=== PATIENT | female | born 1975 | race Caucasian/White ===

== ENCOUNTER 2025-07-19 10:30 | Emergency (ER) | payer MEDICARE, OTHER ==
[~2025-07-19] VITALS: Ht 177.8 cm; Wt 107.6 kg
[~2025-07-19 10:30] MED LIST: CALCIUM PO; FERRALET 90 DU1 EACH PO; FIORICET1 EA PO; FLONAS; HYDROCODONE-AP1 EACH PO; LEVAQUIN500 MG PO; LORZONE750 MG PO; NAPROXEN PO; OMEPRAZOLE40 MG PO; PANTOPRAZOLE SO40 MG PO; PROAIR HFA INH8.5 GM; PROPRANOLOL HCL10 MG PO; SAVELLA100 MG PO; SUCRALFATE1 GM/10 ML PO; ULTRAM 50MG50 MG PO; VIMOVO PO; VITAMIN D3 1,01 EACH PO; XANAX0.5 MG PO; Z.0.CYMBALTA60 MG PO; Z.0.PRILOSEC40 MG PO; [UNRECOGNIZED DRUG - OTHER]; [UNRECOGNIZED DRUG - OTHER] NS
[2025-07-19 10:40] VITALS: PULSE 94; RESP 20; TEMP 97.9
[2025-07-19] MEDS ORDERED: IOPAMIDOL 370 MG/ML 100 ML INFUS..BTL INJ ONE (12:01)
[2025-07-19] MEDS: ONDANSETRON HCL INJ 2MG/ML 2ML 2 MG/ML VIAL IV STA (12:02)
[2025-07-19] MEDS: FAMOTIDINE 20 MG/2 ML VIAL IV STA (12:02)
[2025-07-19] MEDS: SODIUM CHLORIDE 0.9% 1000ML 1,000 ML IV ONE (12:03)
[2025-07-19] MEDS: Morphine 2mg Syringe 2 MG/ML SYR IV ONE (12:03)
[2025-07-19] MEDS ORDERED: PEPCID20 MG PO (13:39)
[2025-07-19] MEDS ORDERED: CYCLOBENZAPRINE5 MG PO (13:40)
[2025-07-19 14:20] VITALS: BP 137/72; PULSE 77; RESP 17; TEMP 98.7; O2SAT 97
== END 2025-07-19 14:12 | disposition home or self-care (01) ==
LOC: FSED 10:53
DX: R06.00 Dyspnea, unspecified (principal); E04.1 Nontoxic single thyroid nodule; M54.6 Pain in thoracic spine; M79.7 Fibromyalgia; D50.9 Iron deficiency anemia, unspecified; I73.00 Raynaud's syndrome without gangrene; Z86.79 Personal history of other diseases of the circulatory system
CPT/HCPCS: 71275; 93005; 99283; J1308; J2270; J2405; J7030; Q9967